=== PATIENT | female | born 1990 | race Caucasian/White ===

== ENCOUNTER 2016-11-16 18:34 | Emergency (ER) | payer BC ==
[~2016-11-16] VITALS: Ht 172.7 cm; Wt 131.8 kg
[~2016-11-16 18:34] MED LIST: ARIPIPRAZOLE PO; ATARAX 10MG10 MG/TAB PO; CARAFATE 1GM1 G PO; CELEXA 20MG20 MG/TAB PO; CVS GLUCOSE PO; LAMICTAL200 MG PO; MAG-OX 400400 MG/TAB; NORCO 325 MG-51 TAB PO; VISTARIL 2525 MG/CAP PO; ZOFRAN ODT4 MG PO
[2016-11-16 18:47] VITALS: TEMP 98.4
[2016-11-16 20:16] VITALS: BP 128/76; PULSE 98
== END 2016-11-16 20:17 | disposition home or self-care (01) ==
LOC: COL.ER 18:34
DX: S93.401A Sprain of unspecified ligament of right ankle, initial encounter (principal); X50.1XXA Overexertion from prolonged static or awkward postures, initial encounter; Y92.480 Sidewalk as the place of occurrence of the external cause

== ENCOUNTER 2016-11-28 21:06 | Emergency (ER) | payer BC ==
[~2016-11-28] VITALS: Ht 172.7 cm; Wt 131.8 kg
[2016-11-28 21:08] VITALS: TEMP 98.2
[2016-11-28 21:51] LABS: BASO # 0.1 (0.0-0.2); BASO % 0.8 % (0.0-2.0); EOS # 0.2 (0.0-0.7); EOS % 1.7 % (0-4.0); GRAN # 4.3 (1.4-6.5); GRAN % 46.8 % (42.2-75.2); LYMPH # 3.8 (1.2-3.4); LYMPH % 41.7 % (20.0-51.0); MEAN CELL VOLUME 81 fl (80.0-100.0); MEAN CORPUSCULAR HEMOGLOBIN 27 pg (27.0-31.0); MEAN CORPUSCULAR HGB CONC 33 g/dl (33.0-37.0); MEAN PLATELET VOLUME 9.2 fl (7.4-10.4); MONO # 0.8 (0.1-0.6); MONO % 8.7 % (1.7-9.3); PLATELET COUNT 300 K/mm3 (130-400); RED BLOOD COUNT 4.52 M/mm3 (4.10-5.30); REDCELL DISTRIBUTION WIDTH-CV 12.5 % (11.5-14.5); WHITE BLOOD COUNT 9.1 K/mm3 (4.8-10.8)
[2016-11-28 22:00] LABS: ANION GAP 10 mmol/L (7-16); BLOOD UREA NITROGEN 14 mg/dL (7-17); CALCIUM 9.3 mg/dL (8.4-10.2); CARBON DIOXIDE 25 mmol/L (22-30); CHLORIDE 101 mmol/L (98-107); CREATININE, serum 0.86 mg/dL (0.52-1.25); GLUCOSE 96 mg/dL (74-106); SODIUM 137 mmol/L (137-145)
[2016-11-28 22:03] LABS: HEMATOCRIT 36.5 % (37.0-47.0)
[2016-11-28 22:15] LABS: TROPONIN-I < 0.012 ng/mL (0.000-0.034)
[2016-11-28 22:36] VITALS: BP 126/80; PULSE 94
[2016-11-29] MEDS ORDERED: ULTRAM 50MG TAB50 MG PO (22:33)
== END 2016-11-28 22:37 | disposition home or self-care (01) ==
LOC: COL.ER 21:06
PROVIDERS: Emergency Medicine
DX: R07.9 Chest pain, unspecified (principal); R55 Syncope and collapse

== ENCOUNTER 2016-11-29 21:50 | Emergency (ER) | payer BC ==
[~2016-11-29] VITALS: Ht 172.7 cm; Wt 131.8 kg
[2016-11-29 21:59] VITALS: TEMP 97.2
[2016-11-29] MEDS ORDERED: ULTRAM 50MG TAB50 MG PO (22:33)
[2016-11-30 00:02] VITALS: BP 129/78; PULSE 84
== END 2016-11-30 00:11 | disposition home or self-care (01) ==
LOC: COL.ER 21:50
DX: S09.90XA Unspecified injury of head, initial encounter (principal); S01.01XA Laceration without foreign body of scalp, initial encounter; J06.9 Acute upper respiratory infection, unspecified; R55 Syncope and collapse; R07.9 Chest pain, unspecified; W19.XXXA Unspecified fall, initial encounter; Z23 Encounter for immunization

== ENCOUNTER 2016-11-30 22:33 | Emergency (ER) | payer BC ==
[~2016-11-30] VITALS: Ht 172.7 cm; Wt 131.8 kg
[~2016-11-30 22:33] MED LIST changes: +ULTRAM 50MG TAB50 MG PO
[2016-11-30 22:38] VITALS: TEMP 99
[2016-11-30 23:25] VITALS: BP 114/63; PULSE 87
== END 2016-11-30 23:26 | disposition home or self-care (01) ==
LOC: COL.ER 22:33
DX: S09.90XA Unspecified injury of head, initial encounter (principal); R55 Syncope and collapse; M25.562 Pain in left knee; R07.9 Chest pain, unspecified; W01.198A Fall on same level from slipping, tripping and stumbling with subsequent striking against other object, initial encounter; Y92.009 Unspecified place in unspecified non-institutional (private) residence as the place of occurrence of the external cause; G47.419 Narcolepsy without cataplexy

== ENCOUNTER 2016-12-04 17:29 | Emergency (ER) | payer BC ==
[~2016-12-04] VITALS: Ht 172.7 cm; Wt 131.8 kg
[2016-12-04 17:30] VITALS: TEMP 98.3
[2016-12-04 22:40] VITALS: BP 122/78; PULSE 104
== END 2016-12-04 22:55 | disposition home or self-care (01) ==
LOC: COL.ER 17:29
DX: Z04.41 Encounter for examination and observation following alleged adult rape (principal)
CPT/HCPCS: J0696

== ENCOUNTER 2016-12-09 18:47 | Emergency (ER) | payer BC ==
[~2016-12-09] VITALS: Ht 172.7 cm; Wt 131.8 kg
[2016-12-09 18:52] VITALS: TEMP 98.6
[2016-12-09] MEDS ORDERED: PREDNISONE20 MG PO (19:41)
[2016-12-09 20:14] VITALS: BP 125/57; PULSE 98
== END 2016-12-09 20:15 | disposition home or self-care (01) ==
LOC: COL.ER 18:47
DX: T78.1XXA Other adverse food reactions, not elsewhere classified, initial encounter (principal); L27.2 Dermatitis due to ingested food
CPT/HCPCS: J7512

== ENCOUNTER 2016-12-09 23:17 | Inpatient (IN) | payer BC ==
[~2016-12-09] VITALS: Ht 172.7 cm; Wt 120.2 kg
[~2016-12-09 23:17] MED LIST changes: +PREDNISONE20 MG PO
[2016-12-10] VITALS (123 sets, daily range): BP systolic 99–127; BP diastolic 49–71; PULSE 73–120; TEMP 97.6–98.6; O2SAT 96–100
[2016-12-10 00:46] LABS: BASO % 0.4 % (0.0-2.0); GRAN # 7.5 (1.4-6.5); GRAN % 87.9 % (42.2-75.2); HEMATOCRIT 37.4 % (37.0-47.0); HEMOGLOBIN 12.2 g/dl (12.5-16.0); LYMPH # 0.9 (1.2-3.4); MEAN CELL VOLUME 82 fl (80.0-100.0); MEAN CORPUSCULAR HEMOGLOBIN 27 pg (27.0-31.0); MEAN CORPUSCULAR HGB CONC 33 g/dl (33.0-37.0); MEAN PLATELET VOLUME 9.4 fl (7.4-10.4); MONO # 0.1 (0.1-0.6); MONO % 1.3 % (1.7-9.3); PLATELET COUNT 264 K/mm3 (130-400); RED BLOOD COUNT 4.59 M/mm3 (4.10-5.30); REDCELL DISTRIBUTION WIDTH-CV 12.9 % (11.5-14.5); WHITE BLOOD COUNT 8.5 K/mm3 (4.8-10.8)
[2016-12-10 01:05] LABS: ADJUSTED CALCIUM 8.8 mg/dL (8.4-10.2); ALBUMIN 4.2 gm/dL (3.5-5.0); BILIRUBIN,TOTAL 0.3 mg/dL (0.0-1.0); CREATININE, serum 0.77 mg/dL (0.52-1.25); TOTAL PROTEIN 7.4 gm/dL (6.4-8.2)
[2016-12-10 01:11] LABS: POTASSIUM 2.8 mmol/L (3.4-5.0)
[2016-12-10 01:19] LABS: PROLACTIN 11.9 ng/mL (3.0-18.6)
[2016-12-10 01:27] LABS: ARTERIAL BLD GAS O2 SATURATION 96.9 % (92-100); ARTERIAL BLD GAS TCO2 CT 11.7; ARTERIAL BLOOD GAS BASE EXCESS -13.1 (-2-2); ARTERIAL BLOOD GAS PHT 7.32 C (7.35-7.45); ARTERIAL BLOOD GAS PO2 102.4 mmHg (80-100); ARTERIAL BLOOD GAS PO2T 102.4 (80-100); ARTERIAL BLOOD GAS pH 7.32 (7.35-7.45); OXYHEMOGLOBIN 95.9 %
[2016-12-10 01:28] LABS: ALLEN TEST YES; ALLENS TEST RESULT PASS; ATS? YES
[2016-12-10 03:31] LABS: PH 5 (5-8); SQUAMOUS EPITHELIAL 0-2 /hpf; URINE APPEARANCE Clear; URINE BACTERIA None Seen /hpf; URINE BILIRUBIN Negative (NEGATIVE); URINE BLOOD 1+ (NEGATIVE); URINE COLOR Straw; URINE GLUCOSE 1+ (NEGATIVE); URINE KETONE Trace (NEGATIVE); URINE RBC 0-2 /hpf; URINE UROBILINOGEN Negative (NEGATIVE); URINE WBC 0-2 /hpf
[2016-12-10 06:22] LABS: MAGNESIUM 1.7 mg/dL (1.6-2.3); PHOSPHOROUS 2.7 mg/dL (2.5-4.5)
[2016-12-10 06:25] LABS: CALCIUM 8.3 mg/dL (8.4-10.2); CREATININE, serum 0.63 mg/dL (0.52-1.25); POTASSIUM 4.5 mmol/L (3.4-5.0)
[2016-12-10 08:39] LABS: ANION GAP 11 mmol/L (7-16); BLOOD UREA NITROGEN 5 mg/dL (7-17); CALCIUM 8.2 mg/dL (8.4-10.2); CARBON DIOXIDE 18 mmol/L (22-30); CHLORIDE 112 mmol/L (98-107); GLUCOSE 109 mg/dL (74-106); POTASSIUM 4.2 mmol/L (3.4-5.0); SODIUM 142 mmol/L (137-145)
[2016-12-10 08:56] LABS: TROPONIN-I < 0.012 ng/mL (0.000-0.034)
[2016-12-10 16:07] LABS: CREATININE, serum 0.7 mg/dL (0.52-1.25); MAGNESIUM 1.9 mg/dL (1.6-2.3); POTASSIUM 4.1 mmol/L (3.4-5.0)
[2016-12-11 03:53] VITALS: BP 114/55; PULSE 91; TEMP 98.3
[2016-12-11 07:52] VITALS: BP 118/54; PULSE 114; TEMP 98
[2016-12-11 08:45] LABS: CALCIUM 8.9 mg/dL (8.4-10.2); CREATININE, serum 0.66 mg/dL (0.52-1.25); MAGNESIUM 1.9 mg/dL (1.6-2.3); POTASSIUM 4.4 mmol/L (3.4-5.0)
[2016-12-11 10:58] VITALS: BP 125/76; PULSE 70; TEMP 97.3
[2016-12-11 15:25] VITALS: BP 105/76; PULSE 89; TEMP 98.9
== END 2016-12-11 18:04 | disposition home or self-care (01) | DRG 641 ==
LOC: COL.ER 23:17 → MEDICAL 12-10 03:37 → IMCU 12-10 03:37 → MEDICAL 12-10 12:04
PROVIDERS: Emergency Medicine; Internal Medicine; Nurse Practitioner Family
DX: E87.2 Acidosis (principal); R55 Syncope and collapse; F31.9 Bipolar disorder, unspecified; E87.6 Hypokalemia; R00.0 Tachycardia, unspecified; E86.0 Dehydration; R11.2 Nausea with vomiting, unspecified; R19.7 Diarrhea, unspecified
CPT/HCPCS: 99223-AI; 99239; J1815; J2405; J7030; Q9967

== ENCOUNTER 2016-12-23 16:01 | Emergency (ER) | payer BC ==
[~2016-12-23] VITALS: Ht 172.7 cm; Wt 131.8 kg
[2016-12-23 16:10] VITALS: TEMP 97.9
[2016-12-23 16:48] LABS: AMPHETAMINE URINE NEGATIVE; BARBITURATES URINE NEGATIVE; BENZODIAZEPINES URINE NEGATIVE; BUPRENORPHINE URINE NEGATIVE; METHADONE URINE NEGATIVE; OPIATES URINE NEGATIVE; OXYCODONE URINE NEGATIVE; PHENCYCLIDINE URINE NEGATIVE; PROPOXYPHENE URINE NEGATIVE; THC CANNABINOIDS URINE NEGATIVE
[2016-12-23] MEDS ORDERED: ULTRAM 50MG TAB50 MG PO (16:56)
[2016-12-23 17:01] LABS: BASO # 0.1 (0.0-0.2); BASO % 0.6 % (0.0-2.0); EOS # 0.2 (0.0-0.7); EOS % 2.3 % (0-4.0); GRAN % 50.9 % (42.2-75.2); HEMATOCRIT 39.1 % (37.0-47.0); HEMOGLOBIN 12.9 g/dl (12.5-16.0); LYMPH % 38.3 % (20.0-51.0); MEAN CELL VOLUME 80 fl (80.0-100.0); MEAN CORPUSCULAR HEMOGLOBIN 26 pg (27.0-31.0); MEAN CORPUSCULAR HGB CONC 33 g/dl (33.0-37.0); MEAN PLATELET VOLUME 9.2 fl (7.4-10.4); MONO # 0.6 (0.1-0.6); MONO % 7.6 % (1.7-9.3); PLATELET COUNT 340 K/mm3 (130-400); RED BLOOD COUNT 4.88 M/mm3 (4.10-5.30); REDCELL DISTRIBUTION WIDTH-CV 12.8 % (11.5-14.5); WHITE BLOOD COUNT 7.9 K/mm3 (4.8-10.8)
[2016-12-23 17:08] LABS: ADJUSTED CALCIUM 8.9 mg/dL (8.4-10.2); ALANINE AMINOTRANSFERASE 67 U/L (9-52); ALBUMIN 4.5 gm/dL (3.5-5.0); ALKALINE PHOSPHATASE 97 U/L (50-136); ANION GAP 13 mmol/L (7-16); BILIRUBIN,TOTAL 0.6 mg/dL (0.0-1.0); BLOOD UREA NITROGEN 14 mg/dL (7-17); CALCIUM 9.3 mg/dL (8.4-10.2); CARBON DIOXIDE 26 mmol/L (22-30); CHLORIDE 102 mmol/L (98-107); CREATININE, serum 0.78 mg/dL (0.52-1.25); GLUCOSE 85 mg/dL (74-106); POTASSIUM 3.9 mmol/L (3.4-5.0); SODIUM 141 mmol/L (137-145); TOTAL PROTEIN 7.9 gm/dL (6.4-8.2)
[2016-12-23 17:16] LABS: ACETAMINOPHEN < 10 ug/mL (10-30); SALICYLATE < 1.0 mg/dL
[2016-12-24 01:05] VITALS: BP 127/60; PULSE 82
== END 2016-12-24 01:00 ==
LOC: COL.ER 16:01
PROVIDERS: Nurse Practitioner
DX: F33.2 Major depressive disorder, recurrent severe without psychotic features (principal); R45.851 Suicidal ideations; F43.0 Acute stress reaction; F41.9 Anxiety disorder, unspecified

== ENCOUNTER 2016-12-28 20:19 | Emergency (ER) | payer BC ==
[~2016-12-28] VITALS: Ht 172.7 cm; Wt 129.5 kg
[2016-12-28 20:22] VITALS: TEMP 98.2
[2016-12-28 20:47] LABS: BASO # 0.1 (0.0-0.2); BASO % 0.6 % (0.0-2.0); EOS # 0.2 (0.0-0.7); EOS % 1.7 % (0-4.0); GRAN # 5.6 (1.4-6.5); GRAN % 59.9 % (42.2-75.2); HEMATOCRIT 39.2 % (37.0-47.0); HEMOGLOBIN 13.1 g/dl (12.5-16.0); LYMPH % 31.3 % (20.0-51.0); MEAN CELL VOLUME 80 fl (80.0-100.0); MEAN CORPUSCULAR HEMOGLOBIN 27 pg (27.0-31.0); MEAN CORPUSCULAR HGB CONC 33 g/dl (33.0-37.0); MEAN PLATELET VOLUME 9.6 fl (7.4-10.4); MONO # 0.6 (0.1-0.6); MONO % 6.3 % (1.7-9.3); PLATELET COUNT 332 K/mm3 (130-400); RED BLOOD COUNT 4.88 M/mm3 (4.10-5.30); REDCELL DISTRIBUTION WIDTH-CV 12.8 % (11.5-14.5); WHITE BLOOD COUNT 9.4 K/mm3 (4.8-10.8)
[2016-12-28 20:58] LABS: ADJUSTED CALCIUM 9.3 mg/dL (8.4-10.2); ALANINE AMINOTRANSFERASE 52 U/L (9-52); ALBUMIN 4.6 gm/dL (3.5-5.0); ALKALINE PHOSPHATASE 92 U/L (50-136); ANION GAP 18 mmol/L (7-16); BILIRUBIN,TOTAL 0.8 mg/dL (0.0-1.0); BLOOD UREA NITROGEN 12 mg/dL (7-17); CALCIUM 9.8 mg/dL (8.4-10.2); CARBON DIOXIDE 20 mmol/L (22-30); CHLORIDE 104 mmol/L (98-107); CREATININE, serum 0.68 mg/dL (0.52-1.25); GLUCOSE 94 mg/dL (74-106); POTASSIUM 4.3 mmol/L (3.4-5.0); SODIUM 142 mmol/L (137-145); TOTAL PROTEIN 7.9 gm/dL (6.4-8.2)
[2016-12-28 21:05] LABS: ACETAMINOPHEN < 10 ug/mL (10-30); SALICYLATE < 1.0 mg/dL
[2016-12-28 21:10] LABS: PH 5 (5-8); SQUAMOUS EPITHELIAL 0-2 /hpf; URINE APPEARANCE Clear; URINE BACTERIA Rare /hpf; URINE BILIRUBIN Negative (NEGATIVE); URINE BLOOD Negative (NEGATIVE); URINE COLOR Yellow; URINE GLUCOSE Negative (NEGATIVE); URINE KETONE Negative (NEGATIVE); URINE RBC 0-2 /hpf; URINE UROBILINOGEN Negative (NEGATIVE); URINE WBC 0-2 /hpf
[2016-12-28] MEDS ORDERED: PERIACTIN 4MG TA4 MG PO (21:20)
[2016-12-28 21:22] LABS: AMPHETAMINE URINE NEGATIVE; BARBITURATES URINE NEGATIVE; BENZODIAZEPINES URINE NEGATIVE; BUPRENORPHINE URINE NEGATIVE; METHADONE URINE NEGATIVE; OPIATES URINE POSITIVE; OXYCODONE URINE NEGATIVE; PHENCYCLIDINE URINE NEGATIVE; PROPOXYPHENE URINE NEGATIVE; THC CANNABINOIDS URINE NEGATIVE
[2016-12-29 05:09] VITALS: BP 118/72; PULSE 82
== END 2016-12-29 05:10 ==
LOC: COL.ER 20:19
PROVIDERS: Emergency Medicine
DX: T45.0X2A Poisoning by antiallergic and antiemetic drugs, intentional self-harm, initial encounter (principal); F31.4 Bipolar disorder, current episode depressed, severe, without psychotic features
CPT/HCPCS: J7030

== ENCOUNTER 2017-01-06 23:27 | Emergency (ER) | payer BC ==
[~2017-01-06] VITALS: Ht 172.7 cm; Wt 127.3 kg
[~2017-01-06 23:27] MED LIST changes: +PERIACTIN 4MG TA4 MG PO
[2017-01-06 23:48] VITALS: TEMP 98.4
[2017-01-07 00:49] LABS: AMPHETAMINE URINE NEGATIVE; BARBITURATES URINE NEGATIVE; BENZODIAZEPINES URINE NEGATIVE; BUPRENORPHINE URINE NEGATIVE; METHADONE URINE NEGATIVE; OPIATES URINE NEGATIVE; OXYCODONE URINE NEGATIVE; PHENCYCLIDINE URINE NEGATIVE; PROPOXYPHENE URINE NEGATIVE; THC CANNABINOIDS URINE NEGATIVE
[2017-01-07 01:02] LABS: BASO % 0.5 % (0.0-2.0); EOS # 0.2 (0.0-0.7); EOS % 2.3 % (0-4.0); GRAN # 4.5 (1.4-6.5); GRAN % 51.5 % (42.2-75.2); HEMOGLOBIN 12.2 g/dl (12.5-16.0); LYMPH # 3.3 (1.2-3.4); LYMPH % 37.7 % (20.0-51.0); MEAN CELL VOLUME 80 fl (80.0-100.0); MEAN CORPUSCULAR HEMOGLOBIN 27 pg (27.0-31.0); MEAN CORPUSCULAR HGB CONC 34 g/dl (33.0-37.0); MEAN PLATELET VOLUME 9.2 fl (7.4-10.4); MONO # 0.7 (0.1-0.6); MONO % 7.7 % (1.7-9.3); PLATELET COUNT 295 K/mm3 (130-400); RED BLOOD COUNT 4.54 M/mm3 (4.10-5.30); REDCELL DISTRIBUTION WIDTH-CV 13.2 % (11.5-14.5); WHITE BLOOD COUNT 8.7 K/mm3 (4.8-10.8)
[2017-01-07 01:10] LABS: HEMATOCRIT 36.1 % (37.0-47.0)
[2017-01-07 01:13] LABS: ACETAMINOPHEN 13 ug/mL (10-30); ADJUSTED CALCIUM 9.3 mg/dL (8.4-10.2); ALANINE AMINOTRANSFERASE 46 U/L (9-52); ALBUMIN 4.1 gm/dL (3.5-5.0); ALKALINE PHOSPHATASE 103 U/L (50-136); ANION GAP 14 mmol/L (7-16); BILIRUBIN,TOTAL 0.6 mg/dL (0.0-1.0); BLOOD UREA NITROGEN 11 mg/dL (7-17); CALCIUM 9.4 mg/dL (8.4-10.2); CARBON DIOXIDE 22 mmol/L (22-30); CHLORIDE 106 mmol/L (98-107); CREATININE, serum 0.81 mg/dL (0.52-1.25); GLUCOSE 99 mg/dL (74-106); POTASSIUM 3.6 mmol/L (3.4-5.0); SODIUM 142 mmol/L (137-145); TOTAL PROTEIN 7.3 gm/dL (6.4-8.2)
[2017-01-07 10:06] LABS: ADJUSTED CALCIUM 9.1 mg/dL (8.4-10.2); ALBUMIN 4.1 gm/dL (3.5-5.0); BILIRUBIN,TOTAL 0.7 mg/dL (0.0-1.0); CALCIUM 9.2 mg/dL (8.4-10.2); CREATININE, serum 0.8 mg/dL (0.52-1.25); POTASSIUM 3.7 mmol/L (3.4-5.0); TOTAL PROTEIN 7.5 gm/dL (6.4-8.2)
[2017-01-08 00:39] VITALS: BP 130/80; PULSE 89
== END 2017-01-08 00:43 ==
LOC: COL.ER 23:27
PROVIDERS: Emergency Medicine; Family Medicine
DX: F31.4 Bipolar disorder, current episode depressed, severe, without psychotic features (principal); T39.1X2A Poisoning by 4-Aminophenol derivatives, intentional self-harm, initial encounter